=== PATIENT | female | born 1960 | race Caucasian/White ===

== ENCOUNTER 2020-10-05 11:01 | Outpatient (CLI) | payer BC | END 2020-10-05 23:59 | disposition home or self-care (01) | LOC: CFH 11:01 | PROVIDERS: ATTEND Internal Medicine Cardiovascular Disease | DX: Z13.6 Encounter for screening for cardiovascular disorders (principal); R91.8 Other nonspecific abnormal finding of lung field; E78.00 Pure hypercholesterolemia, unspecified | CPT/HCPCS: 75571 ==

== ENCOUNTER 2020-10-26 08:04 | Outpatient (CLI) | payer BC ==
[2020-10-26] MEDS ORDERED: OMNIPAQUE 350 MG/ML, 75ML BOTTLE ONE (09:15)
== END 2020-10-26 23:59 | disposition home or self-care (01) ==
LOC: CFH 08:04
PROVIDERS: ATTEND Internal Medicine Cardiovascular Disease
DX: R91.8 Other nonspecific abnormal finding of lung field (principal)
CPT/HCPCS: 71260; 82565; Q9967